=== PATIENT | female | born 1950 | race Caucasian/White ===

== ENCOUNTER 2018-11-26 09:01 | Inpatient (IN) | payer OTHER, BC ==
[2018-11-22 15:42] LABS: BASOPHILS % (AUTO) 0.5 % (0.0-2.0); EOSINOPHILS # (AUTO) 0.1 K/uL (0.0-0.4); EOSINOPHILS % (AUTO) 1.2 % (0.0-4.0); HEMATOCRIT 38.7 % (36-48); HEMOGLOBIN 13.4 g/dL (12.0-16.0); LYMPHOCYTES # (AUTO) 1.1 K/uL (1.0-5.5); LYMPHOCYTES % (AUTO) 16.7 % (20.5-51.5); MEAN CORPUSCULAR HEMOGLOBIN 32 pg (27-31); MEAN CORPUSCULAR HGB CONC 35 % (32-36); MEAN CORPUSCULAR VOLUME 92 fL (79.0-98.0); MONOCYTES # (AUTO) 0.7 K/uL (0.0-1.0); MONOCYTES % (AUTO) 10.4 % (1.7-9.3); NEUTROPHILS # (AUTO) 4.6 K/uL (1.8-7.7); NEUTROPHILS % (AUTO) 71.2 % (40.0-70.0); PLATELET COUNT (AUTO) 240 K/uL (130-430); RED BLOOD CELL COUNT(AUTO) 4.21 MIL/uL (4.2-6.2); RED CELL DISTRIBUTION WIDTH 12.6 % (9.0-15.0); WHITE BLOOD COUNT (AUTO) 6.5 K/uL (4.8-10.8)
[2018-11-22 16:03] LABS: ALBUMIN 3.6 g/dL (3.4-4.8); CALCIUM 9.3 mg/dL (8.4-11.0); CREATININE 0.73 mg/dL (0.55-1.30); POTASSIUM 3.3 mmol/L (3.5-5.1); TOTAL BILIRUBIN 0.4 mg/dL (0.0-1.0)
[2018-11-22 16:46] LABS: INR 0.9 (0.8-1.2); PROTHROMBIN TIME 9.3 SECS (9.5-12.5)
[~2018-11-26] VITALS: Ht 154.9 cm; Wt 84.4 kg
[2018-11-26] MEDS ORDERED: PROPOFOL 200MG/ 20ML VIAL (DIPRIVAN) IV ONE (11:40)
[2018-11-26] MEDS ORDERED: ROCURONIUM BROMIDE 10 MG/ML (ZEMURON) IV ONE (11:40)
[2018-11-26] MEDS ORDERED: MIDAZOLAM HCL 5 MG/5 ML VIAL IVP ONE (11:40)
[2018-11-26] MEDS ORDERED: NEOSTIGMINE METHYLSULFATE 1 MG/ML, 10 ML VIAL IVP ONE (11:40)
[2018-11-26] MEDS ORDERED: SEVOFLURANE 15 MIN GAS INH ONE (11:40)
[2018-11-26] MEDS ORDERED: THROMBIN (BOVINE) 5000 UNITS/ VIAL TP ONE ×2 (11:40→13:52)
[2018-11-26] MEDS ORDERED: NS IRRIG SOLN 1000 ML IR ONE (11:40)
[2018-11-26] MEDS ORDERED: LR 1,000 ML IV.SOLN IV ONE (11:40)
[2018-11-26] MEDS ORDERED: CEFAZOLIN 2 GM IVPB PREMIX 50 ML IV ONE (11:40)
[2018-11-26] MEDS ORDERED: ONDANSETRON HCL 4 MG/2 ML VIAL IVP ONE (11:40)
[2018-11-26] MEDS ORDERED: IOHEXOL 300 mgI/mL, 50 mL INFUS..BTL IV ONE (11:40)
[2018-11-26] MEDS ORDERED: fentaNYL CITRATE/PF 100 MCG/2 ML AMP IVP ONE (11:40)
[2018-11-26] MEDS ORDERED: ATROPINE SULFATE 0.4 MG/ML VIAL IVP ONE (11:40)
[2018-11-26] MEDS ORDERED: LR 1,000 ML IV SCH (12:25)
[2018-11-26] MEDS ORDERED: METOCLOPRAMIDE HCL 10 MG/2 ML VIAL IVP PRN (12:30)
[2018-11-26] MEDS ORDERED: MORPHINE 4 MG/ML INJ. SYRINGE IVP PRN (12:30)
[2018-11-26] MEDS ORDERED: HYDROmorphone 1 MG INJ. 1 MG/ML AMPUL IVP PRN ×2 (12:30)
[2018-11-26] MEDS ORDERED: IOHEXOL 50 ML IV ONE (12:52)
[2018-11-26] MEDS: HYDROmorphone 2 MG/ML VIAL IVP PRN ×2 (14:16→14:44)
[2018-11-26] MEDS ORDERED: HYDROmorphone 2 MG/ML VIAL ONE ×2 (14:25→14:53)
[2018-11-26] MEDS ORDERED: METOCLOPRAMIDE HCL 10 MG/2 ML VIAL ONE (14:27)
[2018-11-26] MEDS ORDERED: ACETAMINOPHEN 325 MG TABLET PO PRN (15:15)
[2018-11-26] MEDS ORDERED: ONDANSETRON HCL 4 MG/2 ML VIAL IVP PRN ×2 (15:15→16:45)
[2018-11-26] MEDS ORDERED: HYDROcodone/ACETAMIN 5-325 MG TAB (NORCO/ VICODIN) PO PRN (15:15)
[2018-11-26] MEDS ORDERED: KETOROLAC TROMETHAMINE 30 MG VIAL IVP PRN (15:30)
--- NOTE | 2018-11-26 15:44 | NUR ---
post op admission received pt from pacu.a/ox3. arousable. vitals bp 133/73 hr 55,tem 98.3,o2 sat 99 on 4 L.RES even and unlabored. not in acute distress.sister at bed side. needs attended.s/p lap esther abd insicion x4 wit ramesh drain pink color drainage. encouraged deep breathing and coughing. will continue to monitor
[2018-11-26 15:55] VITALS: BP_SYST 119
[2018-11-26 16:00] VITALS: BP_SYST 133
[2018-11-26] MEDS ORDERED: HYDR25TA4 PO (16:11)
[2018-11-26] MEDS ORDERED: BENA20TA9 PO (16:11)
[2018-11-26] MEDS ORDERED: LANS15CA14 PO (16:11)
[2018-11-26] MEDS ORDERED: GLU500 PO (16:11)
[2018-11-26] MEDS ORDERED: LIP40 PO (16:11)
[2018-11-26] MEDS: NACL 0.9% 1,000 ML IV SCH (16:25)
[2018-11-26] MEDS: CEFAZOLIN 2 GM IVPB PREMIX 50 ML IV SCH ×2 (16:39→23:35)
[2018-11-26] MEDS ORDERED: DEXTROSE 50% JECT 50 ML DISP.SYRIN IVP PRN (16:45)
[2018-11-26] MEDS ORDERED: INSULIN REGULAR, HUMAN 100 UNITS/ML, 10 ML VIAL (humuLIN R) SUBCUT PRN (16:45)
[2018-11-26] MEDS ORDERED: ZOLPIDEM TARTRATE 5 MG TABLET PO PRN (16:45)
[2018-11-26] MEDS ORDERED: MAG-AL HYDROX/SIMETH 30 ML UDC PO PRN (16:45)
[2018-11-26] MEDS ORDERED: PANTOPRAZOLE SODIUM 40 MG TAB PO PRN (17:00)
--- NOTE | 2018-11-26 17:00 | NUR ---
rounds pt stable sleeping easily aroused. o2 saturation 97% on 4 l oxygen pre nasal canula. bp 99/70 , hr 62 res 15.no s/s of pain or distress. noted.sister at bed sdie. ivfinfusing well. needs atttended. safety and fall precautions mainatined. will continue to monitor
[2018-11-26] MEDS: metroNIDAZOLE 500 mg/NS 100 ML IV SCH ×2 (17:17→23:33)
[2018-11-26] MEDS ORDERED: metFORMIN HCL 500 MG TABLET PO SCH (18:00)
--- NOTE | 2018-11-26 18:49 | NUR ---
CLOSING NOTES PT STABLE NOT IN ACTE DISTRESS. SON AT BED SIDE. IVF INFUSING WELL. DENIES ANY PAIN OR SOB. DENIES ANY NAUSEA OR VOMITING. SAFETY AND FALL PRECAUTIONS MAINTAINED. WILL CONTINUE TO MONITOR
--- NOTE | 2018-11-26 19:05 | NUR ---
OPENING NOTES Received patient resting in bed. Was able to speak to son at bedside. A/Ox4 and able to verbalize needs. Breathing is unlabored and incision dressings are dry and intact. Patient also has a HOLLIS drain in place. Patient states that she is in pain and will be addressed. IVF are infusing, IV dressing is intact, IV site shows no signs of inflammation. Call light within reach, bed at lowest position, and bed alarm is on. Will continue to monitor.
[2018-11-26 19:10] VITALS: BP_SYST 122
[2018-11-26] MEDS: HYDROmorphone 1 MG INJ. 1 MG/ML AMPUL IVP PRN ×2 (20:04→23:34)
--- NOTE | 2018-11-26 22:10 | NUR ---
Patient resting in room and is easily arousable. Patient complains of pain. Breathing is unlabored. Dilaudid 1mg IV push given. Will reassess and continue to monitor.
[2018-11-26 23:07] VITALS: BP_SYST 110
--- NOTE | 2018-11-27 00:04 | NUR ---
Patient resting in bed. No signs of acute pain or discomfort observed. Patient will be continued to be monitored. Call light within reach, bed alarm on, and bed at lowest position.
--- NOTE | 2018-11-27 02:05 | NUR ---
Patient is resting with no signs of acute signs of distress or discomfort. All needs met at this time. Call light within reach, bed lowered to lowest position with bed alarm on.
[2018-11-27] MEDS: NACL 0.9% 1,000 ML IV SCH ×4 (03:45→23:30)
[2018-11-27] MEDS: HYDROmorphone 1 MG INJ. 1 MG/ML AMPUL IVP PRN (03:45)
--- NOTE | 2018-11-27 04:01 | NUR ---
Patient had an episode of vomiting after administering Dilaudid 1mg IV Push. Patient has been educated of side effects of Dilaudid and HOB remains elevated at 35 degrees. No complaints of SOB on 4L Nasal Canula and tolerating well. Will continue to monitor.
--- NOTE | 2018-11-27 06:49 | NUR ---
CLOSING NOTES Patient resting in bed. No signs of acute distress or discomfort observed with 4 L of Nasal canula. IVF infusing and dressings dry and intact. All needs met at this time. Call light within reach, bed alarm on, and bed at lowest position. Will endorse care to the oncoming nurse.
--- NOTE | 2018-11-27 08:00 | NUR ---
OPENING NOTE patient resting in bed A&O x4, patient denies any acute distress, pain is controlled at this time, breathing is even and unlabored on 4L nasal cannula, educated patient on plan of care and call light system, IVF infusing as ordered, will continue to monitor, safety precautions in place, call light within reach.
[2018-11-27 08:04] LABS: BASOPHILS # (AUTO) 0.1 K/uL (0.0-0.2); BASOPHILS % (AUTO) 0.9 % (0.0-2.0); EOSINOPHILS # (AUTO) 0.3 K/uL (0.0-0.4); EOSINOPHILS % (AUTO) 2.2 % (0.0-4.0); HEMATOCRIT 34.9 % (36-48); LYMPHOCYTES # (AUTO) 1.6 K/uL (1.0-5.5); LYMPHOCYTES % (AUTO) 14.4 % (20.5-51.5); MEAN CORPUSCULAR HEMOGLOBIN 29 pg (27-31); MEAN CORPUSCULAR HGB CONC 34 % (32-36); MEAN CORPUSCULAR VOLUME 84 fL (79.0-98.0); MONOCYTES # (AUTO) 0.6 K/uL (0.0-1.0); NEUTROPHILS # (AUTO) 8.8 K/uL (1.8-7.7); NEUTROPHILS % (AUTO) 77.5 % (40.0-70.0); PLATELET COUNT (AUTO) 432 K/uL (130-430); RED BLOOD CELL COUNT(AUTO) 4.14 MIL/uL (4.2-6.2); RED CELL DISTRIBUTION WIDTH 14.3 % (9.0-15.0); WHITE BLOOD COUNT (AUTO) 11.3 K/uL (4.8-10.8)
[2018-11-27 08:07] VITALS: BP_SYST 99
[2018-11-27 08:15] LABS: ALBUMIN 2.9 g/dL (3.4-4.8); CREATININE 0.7 mg/dL (0.55-1.30); POTASSIUM 3.9 mmol/L (3.5-5.1); TOTAL BILIRUBIN 0.5 mg/dL (0.0-1.0)
[2018-11-27] MEDS: MULTIVITAMINS TAB 1 TABLET PO SCH (08:39)
[2018-11-27] MEDS: ATORVASTATIN 20 MG TABLET PO SCH (08:39)
[2018-11-27] MEDS: BENAZEPRIL HCTZ PO SCH (09:00)
[2018-11-27] MEDS ORDERED: HYDROCHLOROTHIAZIDE 12.5 MG CAPSULE (HCTZ) PO SCH (09:00)
[2018-11-27] MEDS ORDERED: LISINOPRIL 20 MG TABLET PO SCH (09:00)
--- NOTE | 2018-11-27 10:09 | NUR ---
Nutrition Update Nadeem Scale 14 noted. Pt admitted for calculus of gallbladder and bile duct without cholecystitis without obstruction. Diet: clear liquid BMI: 35.1 kg/m2 RD to follow per nutrition care standards.
--- NOTE | 2018-11-27 10:38 | NUR ---
Case mgt: LOS review: Discussed plan of care with Dr. Mendoza and nurse Gloria--POC: Dr. Roman is planning for surgery of fistula on ThursdayNov 29--SEJAL BRIDGES Addendum: 11/27/18 at 1625 by Suly Ariza RN DISREGARD CASE MGT NOTE FOR PLAN OF CARE--INCORRECT PT--SEJAL BRIDGES
[2018-11-27] MEDS ORDERED: REFRESH TEARS OP PRN (11:15)
[2018-11-27] MEDS ORDERED: METOCLOPRAMIDE HCL 10 MG/2 ML VIAL IVP PRN (11:30)
--- NOTE | 2018-11-27 11:51 | NUR ---
BLOOD SUGAR IS 167, PATIENT REFUSED INSULIN COVERAGE, EDUCATED PATIENT ON INSULIN AND PATIENT STILL REFUSED, WILL CONTINUE TO MONITOR.
[2018-11-27 12:05] VITALS: BP_SYST 116
--- NOTE | 2018-11-27 12:28 | NUR ---
PATIENT AMBULATED ASSISTED PATIENT TO AMBULATE TO DOOR AND BACK WITH MINIMAL PAIN AND ACUTE DISTRESS, PATIENT IS NOW SITTING IN CHAIR EATING LUNCH, WILL CONTINUE TO MONITOR, SAFETY PRECAUTIONS IN PLACE, CALL LIGHT WITHIN REACH.
[2018-11-27] MEDS: OXYCODONE/ACETAMINOPHEN 5-325 TABLET PO PRN ×3 (13:22→23:30)
--- NOTE | 2018-11-27 14:25 | NUR ---
NOTES patient is resting in bed A&O x4, patient denies any acute distress, pain is controlled at this time, breathing is even and unlabored on room air, will continue to monitor, safety precautions in place, call light within reach.
--- NOTE | 2018-11-27 16:24 | NUR ---
NOTES patient is resting in bed A&O x4, patient states she is feeling better and her pain is getting better, assisted patient to turn and reposition, patient tolerated well, will continue to monitor, IVF infusing as ordered, safety precautions in place, call light within reach.
[2018-11-27 16:27] VITALS: BP_SYST 106
--- NOTE | 2018-11-27 18:38 | NUR ---
CLOSING NOTE patient resting in bed A&O x4, patient denies any acute distress, pain is controlled at this time, breathing is even and unlabored on room air, educated patient on plan of care and call light system, IVF infusing as ordered, will endorse report to oncoming nurse, all needs were met throughout shift, safety precautions in place, call light within reach, sister at bedside.
--- NOTE | 2018-11-27 19:10 | NUR ---
OPENING NOTES Bedside report received from dayshift nurse. Patient received lying in bed, AOx4, no s/s of acute distress noted. Patient states that she is comfortable. Breathing is even and unlabored. IVF infusing well, IV site is patent, no signs of infiltration or infection noted. No signs of active bleeding noted. HOLLIS drain in place. Call light with patient. SCDs attached and operating. Bed is locked and at lowest position. Will continue to monitor.
--- NOTE | 2018-11-27 19:35 | NUR ---
ASSIST TO BATHROOM AND WALK Patient requested assistance to go to bathroom and to walk around. Patient assisted by ELECTRONIC ASSEMBLER. Patient tolerated well. No signs of discomfort noted. Chest rise and fall even bilaterally. No SOB. Patient assisted back to bed. IVF infusing well. Nasal canula attached properly. Call light with patient. SCDs attached and operating. Will continue to monitor.
[2018-11-27 20:00] VITALS: BP_SYST 125
--- NOTE | 2018-11-27 21:00 | NUR ---
ROUNDS Patient in bed watching TV. NO s/s of acute distress noted. Breathing even and unlabored. Call light with patient. Will continue to monitor.
--- NOTE | 2018-11-27 23:30 | NUR ---
PAIN/IV BAG Patient complained of pain. PRN medication to be administered. IV bag replaced at this time, infusing well. All needs met. Call light with patient. Will continue to monitor and reassess.
[2018-11-28 00:36] VITALS: BP_SYST 96
--- NOTE | 2018-11-28 01:00 | NUR ---
ROUNDS Patient sleeping comfortably. No signs of discomfort noted. Chest rise and fall even bilaterally. IVF infusing well. Call light with patient. Bed alarm on. Will continue to monitor.
--- NOTE | 2018-11-28 01:44 | NUR ---
TRANSFER OF CARE RECEIVED CARE OF PT. PT IS RESTING IN BED WITH NO S/S OF ACUTE DISTRESS. SAFETY PRECAUTIONS ARE IN PLACE. WILL MONITOR. Addendum: 11/28/18 at 0229 by Benita Yuen RN SILVIA: CYRUS NUÑEZ, RESUMED CARE OF PT.
--- NOTE | 2018-11-28 03:00 | NUR ---
ROUNDS Patient in bed asleep at this time. No s/s of acute distress noted. Breathing even and unlabored. IVF infusing well. SCDs attached and operating. Call light with patient. Will continue to monitor.
--- NOTE | 2018-11-28 05:00 | NUR ---
ROUNDS Patient in bed asleep. No signs of discomfort noted. Chest rise and fall even bilaterally. IVF infusing well. Call light with patient. Will continue to monitor.
--- NOTE | 2018-11-28 06:33 | NUR ---
CLOSING NOTES/REFUSED INSULIN Patient in bed resting, no s/s of acute distress noted. Breathing even and unlabored. IVF infusing well, IV site patent, no signs of infiltration or infection noted. Skin warm and dry to touch, no s/s of hypoglycemia noted. Accucheck was 158, patient refused to receive insulin. SCDs attached and operating. All needs met throughout shift. Fall and safety precautions maintained throughout shift. Will continue to monitor until patient care is endorsed to oncoming dayshift nurse.
[2018-11-28 07:50] VITALS: BP_SYST 147
[2018-11-28] MEDS: MULTIVITAMINS TAB 1 TABLET PO SCH (07:59)
[2018-11-28] MEDS: ATORVASTATIN 20 MG TABLET PO SCH (08:00)
[2018-11-28] MEDS: OXYCODONE/ACETAMINOPHEN 5-325 TABLET PO PRN ×4 (08:00→22:45)
--- NOTE | 2018-11-28 08:00 | NUR ---
Opening notes, Received pt in bed, pt is aaox4, c/o of pain, was given pain medications for pain of 6/10. Abdominal dressing dry and intact. HOLLIS intact and draining red drainage. Safety precaution in place. call light in reach. bed in low position. Encouraged pt to call nurses for assist and pain medications. Will cont to monitor patient.
[2018-11-28] MEDS: BENAZEPRIL HCTZ PO SCH (08:01)
--- NOTE | 2018-11-28 09:30 | NUR ---
Patient ambulated in the [address] way with assist, pt c/o pain with respiration while walking only, otherwise patient tolerated well. Patient encouraged to do her Incentive Spirometry exercise to prevent pneumonia.
[2018-11-28 09:34] LABS: ALBUMIN 2.6 g/dL (3.4-4.8); CALCIUM 8.2 mg/dL (8.4-11.0); CREATININE 0.73 mg/dL (0.55-1.30); POTASSIUM 3.2 mmol/L (3.5-5.1); TOTAL BILIRUBIN 0.7 mg/dL (0.0-1.0)
[2018-11-28] MEDS: NACL 0.9% 1,000 ML IV SCH ×2 (10:46→21:20)
[2018-11-28] MEDS ORDERED: POTASSIUM CHLORIDE 20 MEQ TAB.PRT.SR PO ONE (12:15)
[2018-11-28 14:13] VITALS: BP_SYST 119
--- NOTE | 2018-11-28 14:25 | NUR ---
PATIENT IN BED, RESTING, FAMILY AT BEDSIDE. NO C/O PAIN.
--- NOTE | 2018-11-28 15:00 | NUR ---
Pt ambulated in the hallway with good [place]. Pt toelerated well.
[2018-11-28 15:29] VITALS: BP_SYST 113
[2018-11-28 19:00] VITALS: BP_SYST 118
--- NOTE | 2018-11-28 19:15 | NUR ---
change of shift.pt.presents s/p surgery;11/28/18.incisions x4w/j-montoya x1.iv acces intact;patent iv;fuids infusing. general status stable.respiratory status stable@room air.pt.utilizing the bsc.call light/telephone w/in reach of the pt.
--- NOTE | 2018-11-28 19:15 | NUR ---
Closing notes, Pt ambulated 3x in the hallway today and did IS, also ambulated to the bathroom with fww and assist. pt given pain med percocet 3x today with good pain relief. drainag from ARACELI SHAFER was 35. endorsed to night RN.
[2018-11-28 20:00] VITALS: BP_SYST 118
--- NOTE | 2018-11-28 20:00 | NUR ---
pt,assessed.v/s assessed;values w/in normal limits.i have apprised the pt that snacks/beverages are available w/in the shift;w/in full liquids parameters.pt.had requested ice water.i have provide the ice water.i have assessed the incision sites.the j-montoya.intact;patent;blood return w/in collection chamber.pt.repositioned.iv access assessed ;intact;patent;iv fluids infusing.general status stable.respiratory status stable;unlabored @room air.call light/telephone placed w/in reach of the pt.
--- NOTE | 2018-11-28 20:30 | NUR ---
i have assessed the blood glucose;value;121mg/dl.i have apprised the pt.of the value. Addendum: 11/29/18 at 0350 by Juan Pablo Greer RN i have changed the iv fluids bag.
--- NOTE | 2018-11-28 21:00 | NUR ---
2100p medications administered.i have assisted the pt.to the bsc.i have assisted the pt's return to bed. pt.repositioned.call light/telephone placed w/in reach of the pt.
--- NOTE | 2018-11-28 22:00 | NUR ---
pt.assessed.pt.presents quiescent affect;calm,somnolent.iv access;intact;patent;iv fluids infusing.general status stable. respiratory status stable.pt.repositioned.call light./telephone placed w/in reach of the pt.
--- NOTE | 2018-11-28 22:30 | NUR ---
pt.had requested medication;pain/sleep.i have administered percocet;5/325mg po;to f/u re;pain medication efficacy per pain mgx protocol.i have administered ambien;10mg po;sleep.no additional requests posited @this hour.i have assessed the j-montoya;intact;patent.j-montoya fluids content measured.
--- NOTE | 2018-11-29 | NUR ---
pt assessed.v/s assessed;values w/in normal limits.no c/o pain,nausea.iv access;intact;patent;iv fluids infusing.j-montoya intact;patent;blood fluids present.pt.repositioned.general status stable.respiratory status stable;unlabored.criselda light/ telephone placed w/in reach of the pt.
[2018-11-29 00:18] VITALS: BP_SYST 110
--- NOTE | 2018-11-29 02:00 | NUR ---
pt.assessed.pt.present quiescent affect;calm,somnolent.iv access intact;patent;iv fluids infusing.j-montoya intact;patent;blood fluids present.general status stable.respiratory status stable;unlabored.pt.repositioned.call light/telephone placed reach of the pt.
--- NOTE | 2018-11-29 04:00 | NUR ---
pt,.assessed.pt.presents quiescent affect;calm,somnolent.pt.assessed for cleanliness.pt.repositioned.iv access;intact;patent;iv fluids infusing.j-montoya assessed;intact;patent;blood fluids present w/in collection chamber.call light/telephone placed w/in reach of the pt.
[2018-11-29] MEDS: NACL 0.9% 1,000 ML IV SCH (05:57)
--- NOTE | 2018-11-29 06:10 | NUR ---
pt assessed.pt.assessed for cleanliness.pt.repositioned.i have assessed the j-montoya intact;patent;blood fluid present w/in the collection chamber. i have assessed the blood glucose;values;113mg/dl.i have apprised the pt.of the value.no c/o pain,nausea.general status stable.respiratory status stable.unlabored.call light/telephone placed w/in the reach of the pt.
[2018-11-29 07:04] LABS: BASOPHILS % (AUTO) 0.1 % (0.0-2.0); EOSINOPHILS # (AUTO) 0.1 K/uL (0.0-0.4); EOSINOPHILS % (AUTO) 1.5 % (0.0-4.0); HEMATOCRIT 32.9 % (36-48); HEMOGLOBIN 11.3 g/dL (12.0-16.0); LYMPHOCYTES # (AUTO) 0.5 K/uL (1.0-5.5); LYMPHOCYTES % (AUTO) 7.8 % (20.5-51.5); MEAN CORPUSCULAR HEMOGLOBIN 32 pg (27-31); MEAN CORPUSCULAR HGB CONC 34 % (32-36); MEAN CORPUSCULAR VOLUME 93 fL (79.0-98.0); MONOCYTES # (AUTO) 0.6 K/uL (0.0-1.0); NEUTROPHILS # (AUTO) 5.7 K/uL (1.8-7.7); NEUTROPHILS % (AUTO) 81.6 % (40.0-70.0); PLATELET COUNT (AUTO) 165 K/uL (130-430); RED BLOOD CELL COUNT(AUTO) 3.54 MIL/uL (4.2-6.2); RED CELL DISTRIBUTION WIDTH 12.6 % (9.0-15.0); WHITE BLOOD COUNT (AUTO) 6.9 K/uL (4.8-10.8)
--- NOTE | 2018-11-29 07:30 | NUR ---
Opening note Patient resting in bed, no complaints of pain. A/Ox4, no SOB. Iv patent, intact, and infusing fluids as ordered. No adverse side effects noted. HOLLIS drainage in place, draining yellow fluid. Surgical dressing in place, no bleeding noted. On safety and aspiration precautions, HOB kept elevated, bed alarm on, bed in lowest position, 2 side rails up. Call light within reach. Will continue to monitor.
[2018-11-29 07:58] LABS: ALBUMIN 2.4 g/dL (3.4-4.8); CALCIUM 8.1 mg/dL (8.4-11.0); CREATININE 0.58 mg/dL (0.55-1.30); POTASSIUM 3.3 mmol/L (3.5-5.1); TOTAL BILIRUBIN 0.7 mg/dL (0.0-1.0)
[2018-11-29 08:30] VITALS: BP_SYST 151
[2018-11-29] MEDS: MULTIVITAMINS TAB 1 TABLET PO SCH (08:54)
[2018-11-29] MEDS: ATORVASTATIN 20 MG TABLET PO SCH (08:54)
[2018-11-29] MEDS: OXYCODONE/ACETAMINOPHEN 5-325 TABLET PO PRN ×3 (08:55→20:58)
[2018-11-29] MEDS: BENAZEPRIL HCTZ PO SCH (08:59)
--- NOTE | 2018-11-29 09:00 | NUR ---
Medications All morning medications given as ordered. No adverse side effects noted. Tolerating well. No nausea, no vomiting noted.
[2018-11-29] MEDS ORDERED: PANTOPRAZOLE SODIUM 40 MG TAB PO ONE (10:45)
--- NOTE | 2018-11-29 11:09 | NUR ---
incentive spirometer Educated patient on the use of incentive spirometer, the reason for use, how to use, when to use, and how often to use, patient verbalized understanding. Return demonstration provided by patient, 250cc inspired. encouraged patient to continue, patient stated she will do it later.
[2018-11-29 12:05] VITALS: BP_SYST 137
--- NOTE | 2018-11-29 13:00 | NUR ---
Lunch Patient sitting up in bed at this time, No complaints of pain. Patient eating lunch at this time, tolerating well, no nausea, no vomiting noted.
[2018-11-29] MEDS ORDERED: POTASSIUM CHLORIDE 20 MEQ TAB.PRT.SR PO ONE (13:30)
--- NOTE | 2018-11-29 13:35 | NUR ---
Discharge Planning: DCP faxed referral to [facility] (f [phone] p [phone]) DCP to follow up.
--- NOTE | 2018-11-29 15:30 | NUR ---
Ambulating patient able to stand and transfer to the bed side commode with assistance, and back to bed in stable condition.
--- NOTE | 2018-11-29 16:01 | NUR ---
Grader Patrol: met with pt. due to her surgery and living home alone. DREDGE PIPEMAN met with pt. bedside. Pt. was able to easily participate in this interview. Pt. stated she stated she lives home alone and is in charge of her own care. She does her own cooking, shopping, meal prep. Pt. stated the emergency contacts listed live nearby. Pt. stated she is suppose to go to a transitional care unit to assist her so she can eventually return home. Pt. stated she had been a pt. at [facility] and had a good experience. there. DREDGE PIPEMAN stated she would make sure her CM knew she had good things to say about [facility]. DREDGE PIPEMAN will remain available as needed. Upon reviewing the notes further, [employer] Crespin is in contact with [facility] for Transitional Care Unit.
[2018-11-29 16:05] VITALS: BP_SYST 133
--- NOTE | 2018-11-29 16:40 | NUR ---
DC Planning: Notified CYRUS Pino that the pt is accepted at [facility] dept, [place] ( [facility]) but will need md to discontinue Ambien and to verified the accepting PCP at [facility]. Planning to dc the pt tomorrow.
--- NOTE | 2018-11-29 17:06 | NUR ---
bedside commode Assisted patient to bedside commode, and back to bed. Patient in stable condition.
--- NOTE | 2018-11-29 18:21 | NUR ---
Closing note Patient resting in bed, no complaints of pain. A/Ox4, no SOB. Iv patent, intact, and infusing fluids as ordered. No adverse side effects noted. HOLLIS drainage in place, draining yellow fluid. Surgical dressing in place, no bleeding noted. On safety and aspiration precautions, HOB kept elevated, bed alarm on, bed in lowest position, 2 side rails up. Call light within reach. Patient in stable condition, all needs met.
--- NOTE | 2018-11-29 20:15 | NUR ---
PHONED PAGED DR MELE FARLEY FOR MEDICATION ORDERS , PATIENT ASKING FOR SLEEP AIDE .
[2018-11-29 21:13] VITALS: BP_SYST 135
--- NOTE | 2018-11-29 21:35 | NUR ---
PERCOCET ONE TABLET PO GIVEN FOR ACUTE PAIN GENERAL , POSITION CHANGE ENCOURAGED & HELPFUL .
[2018-11-29] MEDS ORDERED: ZOLPIDEM TARTRATE 5 MG TABLET PO ONE (21:45)
--- NOTE | 2018-11-30 | NUR ---
AMBIEN 10 MG PO administer per patient Request for sleep aide .
[2018-11-30 00:17] VITALS: BP_SYST 132
--- NOTE | 2018-11-30 03:32 | NUR ---
HOURLY ROUNDING patient Resting awake on and off HOB elevated call gaitan with patient skin dry warm .
--- NOTE | 2018-11-30 06:32 | NUR ---
MILLA QUINONES JP DRAIN 25 ML OUT CLEAR YELLOW FLUID .
--- NOTE | 2018-11-30 07:25 | NUR ---
Opening note Patient resting in bed, no complaints of pain. A/Ox4, no SOB. Iv patent, and intact. HOLLIS drainage in place, draining yellow fluid. Surgical dressing in place, no bleeding noted. On safety and aspiration precautions, HOB kept elevated, bed alarm on, bed in lowest position, 2 side rails up. Call light within reach. Will continue to monitor.
[2018-11-30] MEDS: ATORVASTATIN 20 MG TABLET PO SCH (08:49)
[2018-11-30] MEDS: MULTIVITAMINS TAB 1 TABLET PO SCH (08:49)
[2018-11-30] MEDS: OXYCODONE/ACETAMINOPHEN 5-325 TABLET PO PRN ×2 (08:50→17:16)
[2018-11-30] MEDS: BENAZEPRIL HCTZ PO SCH (08:51)
--- NOTE | 2018-11-30 09:30 | NUR ---
Medications All morning medications given as ordered. No adverse side effects noted. Tolerating well. No nausea, no vomiting noted.
[2018-11-30 10:36] VITALS: BP_SYST 154
--- NOTE | 2018-11-30 10:39 | NUR ---
Incentive spirometer Educated patient on the use of incentive spirometer, the reason for use, how to use, when to use, and how often to use, patient verbalized understanding. Return demonstration provided by patient, 500cc inspired. encouraged patient to continue, patient stated she will do it later.
[2018-11-30 12:00] VITALS: BP_SYST 159
--- NOTE | 2018-11-30 12:40 | NUR ---
Ambulating patient ambulating in the hallway with physical therapist using a front wheeled walker. No complaints of pain.
--- NOTE | 2018-11-30 13:41 | NUR ---
DC Planning:Per dr Reinoso: dr. Tamez is the accepting md at [facility]. The md made aware. >> Per Avelina, given room assignment # 109B, RN to report # [phone]. michelle Luna will book ambulance picp by 1600-- CYRUS PUCKETT made aware. >> CM LVM /notified the above info to lina Zeng # [phone] and s/w dtr/Lilli Trejo # .
--- NOTE | 2018-11-30 14:30 | NUR ---
Rounds Patient ate lunch tolerating well, no nausea, no vomiting noted. Noted with 1 BM.
--- NOTE | 2018-11-30 15:02 | NUR ---
Discharge Planning: [facility] arranged transportation with [employer] ([phone]) 5:30pm to [facility] (f [phone] p [phone]). Nurse station made aware, [facility]. Addendum: 11/30/18 at 1702 by Cheryl Bill DP BARBARA delayed transportation to 7:30pm per CM
[2018-11-30 15:28] VITALS: BP_SYST 168
[2018-11-30 15:47] VITALS: BP_SYST 155
--- NOTE | 2018-11-30 16:30 | NUR ---
Discharge instructions/ Report Report given to Blank BRIDGES at [facility] patient to be transferred to room 104B. Transportation to take patient at 1930.
--- NOTE | 2018-11-30 18:16 | NUR ---
Closing note Patient resting in bed, no complaints of pain. A/Ox4, no SOB. Iv patent, and intact. HOLLIS drainage in place, draining yellow fluid. Surgical dressing in place, no bleeding noted. On safety and aspiration precautions, HOB kept elevated, bed alarm on, bed in lowest position, 2 side rails up. Call light within reach. Patient awaiting discharge report given, patient to be picked up at 1930.
--- NOTE | 2018-11-30 19:25 | NUR ---
PT TRANSFERRED Report given to Blank BRIDGES at [facility]. Transfer packet with Transfer Orders and Medication Reconciliation form given to EMT with report. Exitcare provided. [facility] ID band removed, replaced with ID band with pt's name and . IV catheter, intact. no active bleeding. All belongings sent with patient. Patient left floor via gurney escorted by EMT in no distress.
== END 2018-11-30 19:23 | DRG 417 ==
LOC: SDS 09:01 → SMU 09:02 → STU 15:31 → SMU 15:55 → SDS 11-27 11:45 → SMU 11-27 11:46
PROVIDERS: ADMIT Internal Medicine; ATTEND Internal Medicine
PROC: 0DTJ4ZZ Resection of Appendix, Percutaneous Endoscopic Approach (ICD-10-PCS; 2018-11-26)
PROC: BF141ZZ Fluoroscopy of Gallbladder, Bile Ducts and Pancreatic Ducts using Low Osmolar Contrast (ICD-10-PCS; 2018-11-26)
PROC: 0FT44ZZ Resection of Gallbladder, Percutaneous Endoscopic Approach (ICD-10-PCS; principal; 2018-11-26 11:40)
DX: K80.00 Calculus of gallbladder with acute cholecystitis without obstruction (principal); E43 Unspecified severe protein-calorie malnutrition; K35.80 Unspecified acute appendicitis; E11.9 Type 2 diabetes mellitus without complications; I10 Essential (primary) hypertension; E66.9 Obesity, unspecified; Z86.718 Personal history of other venous thrombosis and embolism; Z88.2 Allergy status to sulfonamides; Z68.35 Body mass index [BMI] 35.0-35.9, adult; Z79.84 Long term (current) use of oral hypoglycemic drugs
CPT/HCPCS: 36415; 71046-TC; 74300; 80053; 82962; 83735-TC; 85025; 85610-TC; 85730-TC; 87081; 88304; 93005; 97116-GP; 97530-GP; C1727; C1758; J0461; J0690; J1170; J1815; J2250; J2405; J2704; J2710; J2765; J3010; J3490; J7030; J7120; Q9967